=== PATIENT | male | born 1960 | race Caucasian/White ===

== ENCOUNTER → 2019-11-06 13:50 | Outpatient (CLI) | payer OTHER, SELFPAY ==
--- NOTE | 2019-11-06 13:51 | RAD_ITS ---
STUDY: X-RAY - PELVIS AND RIGHT HIP REASON FOR EXAM: Postoperative follow-up. TECHNIQUE: 2 views of the pelvis and hip. COMPARISON: Radiographs 08/23/2017. FINDINGS: There are small pelvic phleboliths. Normal bilateral iliac wings, sacroiliac joints and visualized sacrum. Normal bilateral superior and inferior pubic rami. There are degenerative changes of the pubic symphysis. Normal bilateral ischial tuberosities. There is a hip nail with femoral intramedullary trina transfixing a healed right intertrochanteric fracture. Normal hip joint. RAD/HIP, UNI W/ Pelvis 2-3 Views IMPRESSION: ORIF of healed intertrochanteric fracture without significant change. Electronically Signed: Basil Painting MD at 13:25 EST Tel , Service support ,
== END ==
PROVIDERS: Family Provider Internal Medicine; PCP Internal Medicine; Referring Provider Orthopaedic Surgery; Visit Provider Orthopaedic Surgery
DX: S72.141A Displaced intertrochanteric fracture of right femur, initial encounter for closed fracture (principal)
CPT/HCPCS: 73502

== ENCOUNTER → 2020-05-12 13:57 | Outpatient (CLI) | payer MEDICAID, SELFPAY ==
[2019-11-06 13:51] VITALS: BMI 28.1
--- NOTE | 2020-05-12 14:06 | US_ITS ---
STUDY: ABDOMINAL ULTRASOUND REASON FOR EXAM: Male, 60 years old. Generalized abdominal pain for one year. TECHNIQUE: Transabdominal ultrasound was performed with real-time and static conde scale imaging. TECHNICAL QUALITY: Examination limited by bowel gas. COMPARISON: None. FINDINGS: Liver: The liver measures 17.6 cm. There is increased echogenicity consistent with fatty infiltration. The bile ducts are within normal limits. There is hepatic color flow. The direction of portal flow is hepatopetal. There is no demonstrated mass lesion. Gallbladder: Normal distended gallbladder. The gallbladder wall measures 2.8 mm. There is a negative sonographic Sanchez''s sign. There is no pericholecystic fluid. There are no gallstones. Common Bile Duct (C.B.D.): The common bile duct measures 5.9 mm. Pancreas: There is nonvisualization of the pancreas. Spleen: There is borderline splenomegaly. The spleen measures 12.2 cm. Right Kidney: Normal size of the right kidney. The right kidney measures 12.1 cm. Normal renal cortex. The right cortex measures 1.9 cm. There is no demonstrated renal mass or cyst. There is no right hydronephrosis. Left Kidney: Normal size of the left kidney. The left kidney measures 12.4 cm. Normal renal cortex. The left cortex measures 1.5 cm. There is no demonstrated renal mass or cyst. There is no left hydronephrosis. Aorta: Proximal aorta is unremarkable. The mid and distal aorta are obscured by bowel gas. I.V.C.: The IVC is obscured. There is no ascites. US/Abdomen Complete IMPRESSION: 1. Limited visualization due to bowel gas. The greatest lower aorta are obscured. 2. Diffuse fatty infiltration of liver without mass. 3. Borderline splenomegaly. 4. Otherwise normal abdominal ultrasound. Electronically Signed: Matt Sharp DO at 21:22 EDT Tel [phone], Service support ,
== END ==
PROVIDERS: PCP Nurse Practitioner Family; Referring Provider Nurse Practitioner Family
DX: R10.84 Generalized abdominal pain (principal)
CPT/HCPCS: 76700

== ENCOUNTER 2020-06-09 08:45 | Day surgery (SDC) | payer MEDICAID, SELFPAY ==
[2020-05-22 12:49] VITALS: BMI 28.1
--- NOTE | 2020-05-22 12:49 | HP_ITS ---
Intake Vital Signs 05/22/20 BMI 28.1 05/22/20 Height 5 ft 10.5 in 05/22/20 Weight: 235 lb 05/22/20 BMI 33.2 05/22/20 BP 156/84 H 05/22/20 Blood Pressure Location Rt brachial 05/22/20 Position Sitting 05/22/20 Respiration 18 05/22/20 Pulse 65 05/22/20 Pulse Source Monitor 05/22/20 Temp 99.3 F H 05/22/20 Temp Source Temporal 05/22/20 Pulse Oximetry (%) 94 05/22/20 Oxygen Delivery Method room air Intake Visit Reasons: EGD & COLONOSCOPY Operator Catalyst Concentration Required: No Is patient in pain?: No Allergies iodine Allergy (Verified 05/22/20 12:51) Other Medications Aspirin [Aspirin, Baby] 81 mg PO DAILY@0800 tab.chew 02/21/17 [Rx] atorvastatin 10 mg tablet 10 mg PO DAILY 05/22/20 [History Confirmed 05/22/20] cholecalciferol (vitamin D3) 1,250 mcg (50,000 unit) tablet 1,250 mcg PO QWEEK 05/22/20 [History Confirmed 05/22/20] metformin 500 mg tablet 250 mg PO DAILY tab 05/22/20 [History Confirmed 05/22/20] omeprazole 40 mg capsule,delayed release 40 mg PO DAILY 05/22/20 [History Confirmed 05/22/20] PFSH Medical History Hx of bladder cancer (Acute) GERD (gastroesophageal reflux disease) (Acute) Debility (Acute) Paresthesia of right arm and leg (Acute) Blurred vision (Acute) Hip fracture (Acute) Nicotine use disorder (Chronic) Intertrochanteric fracture of right femur (Acute) S/P ORIF (open reduction internal fixation) fracture (Acute) Surgical History Hx of colonoscopy (Acute) Hx of surgical amputation of finger (Acute) History of repair of hip fracture (Acute) Family History Mother Arthritis Hypertension High cholesterol Father High cholesterol Hypertension Social History (Updated 05/22/20 @ 13:[address] Brenden Ramirez MD) Smoking Status: Current every day smoker alcohol intake: current alcohol intake frequency: a few times a week substance use type: marijuana caffeine: No (has recently stopped) what type of physical activity do you participate in: none HPI HPI Surgical H&P: Yes HPI: PHU MIGUEL, is a 60 M who presents to the office today for Endoscopy. Patient has been having episodes of dysphasia particularly when he eats steak for the first bite where it seems to get stuck. Takes a lot of liquid and a lot of coughing to get this to move down. In addition he suffers from reflux. He has never had an upper scope. Patient has been noticing rectal bleeding over the last month. His last colonoscopy was in 2014 and is reportedly negative. ROS General General: Yes weight change; no appetite, fatigue, colon cancer, breast cancer or weakness HEENT HEENT: No difficulty swallowing, eye injury, eye surgery, swollen glands or hoarseness Endo Endocrine: No thyroid disease, diabetes mellitus, thyroid cancer, Hair loss, heat intolerance or cold intolerance Skin Skin: No rash or changing moles Breast Breast: No left breast lump, right breast lump, nipple discharge, breast pain, abnormal mammogram, abnormal US or breast enlargement Musc Musculoskeletal: Yes back problems and arthritis; no rheumatoid arthritis, gout or joint pain Cardio Cardiovascular: No murmur, pacemaker, heart disease, atrial fibrillation, high blood pressure, heart attack, heart stent, palpitations, shortness of breat with exertion or chest pain Psych Psychiatric: No depression, anxiety or hearing voices Resp Respiratory: No shortness of breath, No sleep apnea, No cough, No COPD, No asthma, No emphysema, No wheezing Gastro Gastrointestinal: Yes abdominal pain, No nausea or vomiting, No diarrhea, No constipation, Yes blood in stool, Yes acid reflux, No hemorrhoids, No ulcers, No gallbladder problem, No black,tarry stools Josse Hematologic: No blood thinners, No blood disorders, No bleeding, No anemia, No blood clots Neuro Neurologic: No system reviewed and no additional complaints, except as docu, No as per HPI, No abnormal walking, No abnormal hearing, No abnormal movements, No abnormal speech, No behavioral changes, No burning sensations, No confusion, No seizure-like activity, No unsteadiness, No dizziness, No localized weakness, No frequent falls, No headache(s), No lack of coordination, No loss of vision, No memory loss, No numbness, No other visual disturbances, No radiating pain, No restless legs, No sensory deficit, No fainting, No tingling, No tremor(s), No weakness, No other Exam Const General: no acute distress, well developed, well hydrated Orientation: oriented to person, oriented to place, oriented to time [facility] Head: normocephalic, atraumatic Ears: external ears normal Mouth: moist mucous membranes Eyes Sclera: sclerae normal Pupils: normal by confrontation Neck Neck: no lymphadenopathy noted Neck mass: No Thyroid: thyroid normal, symmetrical Chest Chest palpation & inspection: normal inspection of the chest Breast Palpation: No nipple discharge Resp Effort & Inspection: normal respiratory effort Auscultation: clear to auscultation bilaterally Percussion: percussion normal Cardio Rate: regular rate Rhythm: regular rhythm Heart Sounds: no murmurs GI Palpation: soft, no hepatosplenomegaly, no masses, nontender Rectal Exam: other Other: Rectal exam deferred. Extrem General: normal to inspection, no clubbing, cyanosis or edema Assessment & Plan Problems 1. Esophageal dysphagia R13.10 2. Rectal hemorrhage K62.5 3. Gastroesophageal reflux disease, esophagitis presence not specified K21.9 Plan I have discussed the above with the patient. I have offered the patient colonoscopy As well as an EGD for evaluation. I have explained the risks/benefits of the procedure and described the procedure. I have discussed the risks with the patient, including but not limited to: infection, bleeding, perforation of the GI tract requiring emergency surgery, inability to complete the procedure, injury to any internal organs, complications of anesthesia, etc. - the patient understands and agrees to proceed. I have answered all the patient's questions to the patient's satisfaction and the patient has no further questions. The patient has been given instructions for the colon cleansing preparation. Orders Orders: Colonoscopy Today EGD Today Medications Discontinued: pantoprazole Discontinued Reason: Pt no longer taking 20 mg PO DAILY 30 tabs 0RF sennosides-docusate sodium 8.6-50 mg Discontinued Reason: Pt no longer taking 2 tabs PO DAILY 0RF Coding Level of Care Code Off vis,new,level 3 Diagnoses Esophageal dysphagia R13.10 ??Dysphagia type: esophageal phase Rectal hemorrhage K62.5 Gastroesophageal reflux disease, esophagitis presence not specified K21.9 ??Esophagitis presence: esophagitis presence not specified COVID (Procedure Consent) Procedure Criteria Procedure Criteria: Yes Elective The surgeon/proceduralist and patient have discussed in detail the risk of exposure to and/or potential harm posed by the COVID-19 virus with having a surgery/procedure at this time versus the risk of? delaying the surgery/procedure. It is not possible to know either the risk of delaying the surgery or procedure or chance of getting an infection with perfect accuracy, but a joint decision was made between the patient and the surgeon/proceduralist ?to proceed at this time with the scheduled surgery/procedure as indicated on the consent form. 05/22/20 1309 <Electronically signed by Brenden najera MD> Date _ Brenden Ramirez MD I have re-examined the patient. There are no clinical changes since date of exam.
[2020-06-09 09:09] VITALS: BP 145/86; PULSE 67; RESP 16; TEMP 36.8; O2SAT 96; BMI 34.1
[2020-06-09] MEDS: Lactated Ringers 1,000 ML 100 ML IV (09:22)
[2020-06-09 09:31] LABS: Bedside Glucose 187 mg/dL (70-110)
--- NOTE | 2020-06-09 09:45 | IMM_PTH ---
PATIENT: PHU MIGUEL LOC: EN U#:[id number] AGE/SX: 60/M ROOM: RE06/09/[address]: Dr. Brenden Ramirez MD : 1960 BED: DIS: 06/09/2020 SPEC #: [id number] RECD: 06/09/20 11:38 STATUS: GAYLA REQ #: [id number] CECILIA: 06/09/20 09:[address]: Brenden Ramirez DEPT: IMMUNOHISTOCHEMISTRY RECD BY: Millie Underwood ENTERED: 06/09/20 11:38 SP TYPE: IMMUNO OTHR DR: Tess Phillips, FUSION ANALYST-C [facility] Tissues: A - Stomach, NOS Procedures: H Pylori (initial) PHYSICIAN & INSTITUTION [place] [address] SPECIMEN INFORMATION: Tissue Source: A - Antrum biopsy Clinical Info: Esophageal dysphagia, GERD, rectal hemorrhage Specimen Number: [id number] CPT code: 85647 METHODOLOGY: Deparaffinized sections of prefer/formalin-fixed tissue or PAP/DQ stained slides are incubated with monoclonal/polyclonal antibodies/oligonucleotide probes. Localization is made via biotin free immunoperoxidase method. Appropriate controls are performed and reacted as expected. Results on target cell population are indicated in the following table: RESULTS: ANTIBODY / CLONE RESULT Block A H Pylori (polyclonal) negative These tests were developed and their performance characteristics determined by [facility]. They may not have been cleared or approved by the U.S. Food and Drug Administration. The FDA has determined that such clearance or approval is not necessary. INTERPRETATION: A. Antrum biopsy: Negative for Helicobacter pylori organisms. AM:lurdes 06/10/20
--- NOTE | 2020-06-09 09:45 | EGD_PTH ---
PATIENT: PHU MIGUEL LOC: EN U#:[id number] AGE/SX: 60/M ROOM: RE06/09/[address]: Dr. Brenden Ramirez MD : 1960 BED: DIS: 06/09/2020 SPEC #: [id number] RECD: 06/09/20 10:24 STATUS: GAYLA LESLY #: [id number] CECILIA: 06/09/20 09:[address]: Brenden Ramirez DEPT: SURGICAL PATHOLOGY RECD BY: Elie Barfield ENTERED: 06/09/20 11:04 SP TYPE: EGD BIOPSY OTHR DR: Tess Phillips, CLAIMS INVESTIGATOR-C [facility] Tissues: A - Gastric mucous membrane B - Ascending colon C - Transverse colon D - Sigmoid colon biopsy Procedures: Surgery Specimen Level IV HEADER OPERATION: Colonoscopy, EGD ([facility] [place]) PRE-OP DIAGNOSIS: Esophageal dysphagia, GERD, rectal hemorrhage TISSUE SUBMITTED: A - Antrum biopsy for H. pylori and path, B - Ascending colon polyp, C - Transverse colon polyp, D - Sigmoid colon polyp MICROSCOPIC DIAGNOSIS A. Gastric antrum, biopsy: Minimal chronic inflammation. See comment. B. Ascending colon polyp, biopsy: Hyperplastic polyp. C. Transverse colon polyp, biopsy: Polypoid fragment of benign colon tissue. See comment. D. Sigmoid colon polyp, biopsy: Tubular adenoma. AM:lurdes 06/10/20 COMMENT A. The results of immunohistochemistry for Helicobacter pylori will be reported separately ([id number]). C. Neither hyperplastic nor adenomatous change is identified. MICROSCOPIC DESCRIPTION Slides are reviewed. GROSS DESCRIPTION A - Received in fixative is one container labeled with the patient's name and designated antrum biopsy. The specimen consists of one irregular fragment of light hyde soft tissue that measures 0.4 x 0.3 x 0.1 cm. The specimen is totally submitted in one cassette. B - Received in fixative is one container labeled with the patient's name and designated ascending colon polyp biopsy. The specimen consists of two irregular fragments of light hyde soft tissue that in aggregate measure 0.4 x 0.2 x 0.1 cm. The specimen is totally submitted in one cassette. C - Received in fixative is one container labeled with the patient's name and designated transverse colon polyp. The specimen consists of multiple irregular fragments of light hyde soft tissue that in aggregate measure 0.5 x 0.5 x 0.1 cm. The specimen is totally submitted in one cassette. D - Received in fixative is one container labeled with the patient's name and designated sigmoid colon polyp. The specimen consists of a piece of hyde-pink polyp measuring 1 x 0.8 x 0.5 cm. The apparent base is inked. The specimen is bisected and submitted entirely in one cassette. Also present in the container are two fragments of hyde soft tissue measuring in aggregate 0.3 x 0.1 x 0.1 cm. The entire specimen is submitted in one cassette. / SJ:rg 06/09/20 TC:5 CPT: 74713 x4
--- NOTE | 2020-06-09 09:58 | OP.CCLET_ITS ---
06/09/2020 Ansley Galan [facility] Re : Upper GI endoscopy procedure for Anuj Linder [facility] This procedure was performed on Tuesday, June 09, 2020. My impressions and recommendations are as follows: Impressions : - Normal esophagus. - Erythematous mucosa in the prepyloric region of the stomach. Biopsied. - Normal examined duodenum. No specimens collected. Recommendations : - Discharge patient to home. - Resume previous diet. - Continue present medications. - Await pathology results. - Repeat upper endoscopy (date not yet determined) for surveillance. - Return to my office in 1 week. My findings are described in the full procedure note, which is enclosed. If I can be of further assistance, please feel free to contact me at Doctor phone number(s): , Fax: [phone], Work: . Sincerely, MD Brenden Nathan MD 06/09/2020 9:58:23 AM This report has been signed electronically.
--- NOTE | 2020-06-09 09:58 | OP.EGD_ITS ---
Patient Name: Anuj López Procedure Date: 06/09/2020 9:26 AM Date of : 1960 Age: 60 Procedure: Upper GI endoscopy Indications: Esophageal dysphagia, Gastro-esophageal reflux disease Providers: Brenden Ramirez MD Referring MD: Ansley Galan [facility] Medicines: See the Anesthesia note for documentation of the administered medications Patient Profile: This is a 60 year old male. Refer to note in patient chart for documentation of history and physical. Complications: No immediate complications. Procedure: Pre-Anesthesia Assessment: - Prior to the procedure, a History and Physical was performed, and patient medications and allergies were reviewed. The patient's tolerance of previous anesthesia was also reviewed. The risks and benefits of the procedure and the sedation options and risks were discussed with the patient. All questions were answered, and informed consent was obtained. Prior Anticoagulants: The patient has taken no previous anticoagulant or antiplatelet agents. ASA Grade Assessment: II - A patient with mild systemic disease. After reviewing the risks and benefits, the patient was deemed in satisfactory condition to undergo the procedure. After obtaining informed consent, the endoscope was passed under direct vision. Throughout the procedure, the patient's blood pressure, pulse, and oxygen saturations were monitored continuously. The gastroscope was introduced through the mouth, and advanced to the second part of duodenum. The upper GI endoscopy was accomplished without difficulty. The patient tolerated the procedure well. Scope In: 9:36:14 AM Scope Out: 9:38:35 AM Total Procedure Duration Time 0 hours 2 minutes 21 seconds Findings: The examined esophagus was normal. If the patient is still having symptoms of dysphasia we will need to get esophageal manometry studies. Localized mildly erythematous mucosa without bleeding was found in the prepyloric region of the stomach. Biopsies were taken with a cold forceps for Helicobacter pylori testing. The examined duodenum was normal. No biopsies or other specimens were collected for this exam. Impression: - Normal esophagus. - Erythematous mucosa in the prepyloric region of the stomach. Biopsied. - Normal examined duodenum. No specimens collected. Recommendation: - Discharge patient to home. - Resume previous diet. - Continue present medications. - Await pathology results. - Repeat upper endoscopy (date not yet determined) for surveillance. - Return to my office in 1 week. Procedure Code(s): --- Professional --- 99622, Esophagogastroduodenoscopy, flexible, transoral; with biopsy, single or multiple Diagnosis Code(s): --- Professional --- K31.89, Other diseases of stomach and duodenum R13.14, Dysphagia, pharyngoesophageal phase K21.9, Gastro-esophageal reflux disease without esophagitis CPT copyright 2017 [employer]. All rights reserved. The codes documented in this report are preliminary and upon furnace fitter review may be revised to meet current compliance requirements. MD Brenden Nathan MD 06/09/2020 9:58:23 AM This report has been signed electronically. Number of Addenda: 0 Note Initiated On: 06/09/2020 9:26 AM
[2020-06-09 10:00] VITALS: BP 145/95; BP 98/49; PULSE 63; RESP 16; TEMP 36.7; O2SAT 95
--- NOTE | 2020-06-09 10:01 | OP.COLON_ITS ---
Patient Name: Anuj López Procedure Date: 06/09/2020 9:39 AM Date of : 1960 Age: 60 Procedure: Colonoscopy Indications: Rectal bleeding Providers: Brenden Ramirez MD Referring MD: Ansley Galan [facility] Medicines: See the Anesthesia note for documentation of the administered medications Patient Profile: This is a 60 year old male. Refer to note in patient chart for documentation of history and physical. Last Colonoscopy: 2014. Complications: No immediate complications. Procedure: Pre-Anesthesia Assessment: - Prior to the procedure, a History and Physical was performed, and patient medications and allergies were reviewed. The patient's tolerance of previous anesthesia was also reviewed. The risks and benefits of the procedure and the sedation options and risks were discussed with the patient. All questions were answered, and informed consent was obtained. Prior Anticoagulants: The patient has taken no previous anticoagulant or antiplatelet agents. ASA Grade Assessment: II - A patient with mild systemic disease. After reviewing the risks and benefits, the patient was deemed in satisfactory condition to undergo the procedure. - Prior to the procedure, a History and Physical was performed, and patient medications and allergies were reviewed. The patient's tolerance of previous anesthesia was also reviewed. The risks and benefits of the procedure and the sedation options and risks were discussed with the patient. All questions were answered, and informed consent was obtained. Prior Anticoagulants: The patient has taken no previous anticoagulant or antiplatelet agents. ASA Grade Assessment: III - A patient with severe systemic disease. After reviewing the risks and benefits, the patient was deemed in satisfactory condition to undergo the procedure. After I obtained informed consent, the scope was passed under direct vision. Throughout the procedure, the patient's blood pressure, pulse, and oxygen saturations were monitored continuously. The colonoscope was introduced through the anus and advanced to the cecum, identified by appendiceal orifice and ileocecal valve. The colonoscopy was performed without difficulty. The patient tolerated the procedure well. The quality of the bowel preparation was adequate to identify polyps 6 mm and larger in size. Scope In: 9:40:18 AM Scope Withdrawal Time 0 hours 10 minutes 17 seconds Scope Out: 9:53:44 AM Total Procedure Duration Time 0 hours 13 minutes 26 seconds Findings: Four sessile polyps were found in the sigmoid colon, transverse colon and ascending colon. The polyps were 4 to 11 mm in size. These polyps were removed with a hot snare. Resection and retrieval were complete. Non-bleeding internal hemorrhoids were found during retroflexion. The hemorrhoids were mild and small. Impression: - Four 4 to 11 mm polyps in the sigmoid colon, in the transverse colon and in the ascending colon, removed with a hot snare. Resected and retrieved. - Non-bleeding internal hemorrhoids. Recommendation: - Repeat colonoscopy in 3 - 5 years for surveillance. - Return to my office in 1 week. - Continue present medications. Procedure Code(s): --- Professional --- 45443, Colonoscopy, flexible; with removal of tumor(s), polyp(s), or other lesion(s) by snare technique Diagnosis Code(s): --- Professional --- D12.5, Benign neoplasm of sigmoid colon D12.3, Benign neoplasm of transverse colon (hepatic flexure or splenic flexure) D12.2, Benign neoplasm of ascending colon K64.8, Other hemorrhoids K62.5, Hemorrhage of anus and rectum CPT copyright 2017 [employer]. All rights reserved. The codes documented in this report are preliminary and upon cash application clerk review may be revised to meet current compliance requirements. MD Brenden Nathan MD 06/09/2020 10:01:14 AM This report has been signed electronically. Number of Addenda: 0 Note Initiated On: 06/09/2020 9:39 AM
--- NOTE | 2020-06-09 10:02 | OP.CCLET_ITS ---
06/09/2020 Ansley Angelia [facility] Re : Colonoscopy procedure for Anuj Linder [facility] This procedure was performed on Tuesday, June 09, 2020. My impressions and recommendations are as follows: Impressions : - Four 4 to 11 mm polyps in the sigmoid colon, in the transverse colon and in the ascending colon, removed with a hot snare. Resected and retrieved. - Non-bleeding internal hemorrhoids. Recommendations : - Repeat colonoscopy in 3 - 5 years for surveillance. - Return to my office in 1 week. - Continue present medications. My findings are described in the full procedure note, which is enclosed. If I can be of further assistance, please feel free to contact me at Doctor phone number(s): , Fax: [phone], Work: . Sincerely, MD Brenden Nathan MD 06/09/2020 10:01:14 AM This report has been signed electronically.
[2020-06-09 10:05] VITALS: BP 145/95; BP 96/49; PULSE 60; RESP 16; O2SAT 92
[2020-06-09 10:10] VITALS: BP 102/50; BP 145/95; PULSE 60; RESP 16; O2SAT 92
[2020-06-09 10:13] VITALS: BP 106/63; BP 145/95; PULSE 59; RESP 16; TEMP 36.3; O2SAT 92
[2020-06-09 10:45] VITALS: BP 145/95
== END 2020-06-09 10:45 | disposition home or self-care (01) ==
LOC: EN 08:47 → AC 08:47
PROVIDERS: Anesthesiology; Visit Provider Surgery
PROC: 0DJD8ZZ Inspection of Lower Intestinal Tract, Via Natural or Artificial Opening Endoscopic (ICD-10-PCS; CPT 45378; principal; 2020-06-09 09:40)
DX: K29.50 Unspecified chronic gastritis without bleeding (principal); K21.9 Gastro-esophageal reflux disease without esophagitis; D12.5 Benign neoplasm of sigmoid colon; K63.5 Polyp of colon; K64.8 Other hemorrhoids; Z11.59 Encounter for screening for other viral diseases; G25.81 Restless legs syndrome; E78.00 Pure hypercholesterolemia, unspecified; Z86.2 Personal history of diseases of the blood and blood-forming organs and certain disorders involving the immune mechanism; Z87.19 Personal history of other diseases of the digestive system; Z85.51 Personal history of malignant neoplasm of bladder; Z86.73 Personal history of transient ischemic attack (TIA), and cerebral infarction without residual deficits; Z79.82 Long term (current) use of aspirin; Z79.84 Long term (current) use of oral hypoglycemic drugs; Z79.899 Other long term (current) drug therapy; Z87.891 Personal history of nicotine dependence
CPT/HCPCS: 43239; 45385; 82962; 87635; 88305; 88342; 94799; J7120; J1610; J2405; U0003

== ENCOUNTER → 2020-07-11 09:00 | Outpatient (CLI) | payer MEDICAID, SELFPAY ==
[2020-07-11 10:18] LABS: Absolute Lymphocyte Count 2.94 X10^3/uL (0.83-4.51); Absolute Neutrophil Count 3.3 X10^3/uL (2.0-7.7); Basophil# 0.03 X10^3/uL; Basophil% 0.4 % (0-1); Eosinophil# 0.19 X10^3/uL; Eosinophils% 2.7 % (0-5); Hematocrit 45.2 % (40-54); Hemoglobin 14.7 g/dL (13.0-16.5); Lymphocyte # 2.94 X10^3/ul (4.0); Lymphocyte % 42.2 % (19-41); Mean Corp Hgb Conc 32.5 g/dL (32-36); Mean Corpuscular Hgb 29.7 pg (27.0-32.0); Mean Corpuscular Volume 91.3 fL (80-94); Mean Platelet Vol. 11.8 fl (6.2-12.0); Monocyte# 0.53 X10^3/uL; Monocyte% 7.6 % (0-10); NRBC Flagged by Analyzer 0 % (0-5); Neutrophil # 3.26 X10^3/uL (2.7-7.7); Neutrophil % 46.8 % (47-70); Platelet Count 121 K/mm3 (150-450); RBC Distribution Width CV 11.9 % (11.6-14.6); RBC Distribution Width SD 39.7 fl (35.1-43.9); Red Blood Count 4.95 M/mm3 (4.6-6.2)
[2020-07-11 10:49] LABS: Hemoglobin A1c 8.7 % (3.8-5.6)
[2020-07-11 11:00] LABS: ALB/GLOB Ratio 0.9 RATIO (0.9-2.4); AST(SGOT) 105 U/L (15-37); Alanine Aminotransfer ALT/SGPT 128 U/L (16-61); Albumin, Serum 3.5 g/dL (3.2-5.0); Alkaline Phosphatase 139 U/L (45-117); Anion Gap 9 (5-15); BUN 13 mg/dL (7-18); BUN/Creat Ratio 11.1 RATIO (10-20); Calcium,Total 8.8 mg/dL (8.5-10.1); Chloride 103 mmol/L (98-107); Cholesterol 155 mg/dL (200); Creatinine, Serum 1.17 mg/dL (0.70-1.30); EST Glomerular Filtration Rate 68 mL/min (>60); Est Glom Filt Rate - Afr Amer 82 mL/min (>60); Globulin 4.1 g/dL (2.2-4.2); Glucose 180 mg/dL (74-106); High Density Lipoprotein 25 mg/dL; Potassium 3.8 mmol/L (3.5-5.1); Protein, Total 7.6 g/dL (6.4-8.2); Sodium Level 138 mmol/L (136-145); Triglycerides 389 mg/dL; Very Low Density Lipoprotein 78 mg/dL (5-40)
== END ==
PROVIDERS: Nurse Practitioner Family
DX: D69.6 Thrombocytopenia, unspecified (principal); E11.9 Type 2 diabetes mellitus without complications; E78.5 Hyperlipidemia, unspecified; R94.5 Abnormal results of liver function studies
CPT/HCPCS: 36415; 80053; 80061; 83036; 85025

== ENCOUNTER → 2020-11-25 08:28 | Outpatient (CLI) | payer MEDICAID, SELFPAY ==
[2020-07-29 11:20] VITALS: BMI 34.1
[2020-11-25 09:01] LABS: Absolute Lymphocyte Count 3.06 X10^3/uL (0.83-4.51); Absolute Neutrophil Count 2.9 X10^3/uL (2.0-7.7); Basophil# 0.04 X10^3/uL; Basophil% 0.6 % (0-1); Eosinophil# 0.15 X10^3/uL; Eosinophils% 2.2 % (0-5); Hematocrit 46.8 % (40-54); Hemoglobin 15.4 g/dL (13.0-16.5); Lymphocyte # 3.06 X10^3/ul (4.0); Lymphocyte % 45.8 % (19-41); Mean Corp Hgb Conc 32.9 g/dL (32-36); Mean Corpuscular Hgb 30.6 pg (27.0-32.0); Mean Platelet Vol. 11.5 fl (6.2-12.0); Monocyte# 0.52 X10^3/uL; Monocyte% 7.8 % (0-10); NRBC Flagged by Analyzer 0 % (0-5); Neutrophil # 2.87 X10^3/uL (2.7-7.7); Platelet Count 129 K/mm3 (150-450); RBC Distribution Width CV 12.5 % (11.6-14.6); RBC Distribution Width SD 42.5 fl (35.1-43.9); Red Blood Count 5.03 M/mm3 (4.6-6.2); White Blood Count 6.7 K/mm3 (4.4-11.0)
[2020-11-25 09:18] LABS: Hemoglobin A1c 9.3 % (3.8-5.6)
[2020-11-25 09:29] LABS: ALB/GLOB Ratio 0.7 RATIO (0.9-2.4); AST(SGOT) 66 U/L (15-37); Alanine Aminotransfer ALT/SGPT 93 U/L (16-61); Albumin, Serum 3.3 g/dL (3.2-5.0); Alkaline Phosphatase 138 U/L (45-117); Anion Gap 6 (5-15); BUN 16 mg/dL (7-18); BUN/Creat Ratio 13.8 RATIO (10-20); Calcium,Total 8.7 mg/dL (8.5-10.1); Chloride 103 mmol/L (98-107); Cholesterol 146 mg/dL (200); Creatinine, Serum 1.16 mg/dL (0.70-1.30); EST Glomerular Filtration Rate 69 mL/min (>60); Est Glom Filt Rate - Afr Amer 83 mL/min (>60); Globulin 4.5 g/dL (2.2-4.2); Glucose 209 mg/dL (74-106); High Density Lipoprotein 26 mg/dL; Potassium 3.9 mmol/L (3.5-5.1); Protein, Total 7.8 g/dL (6.4-8.2); Sodium Level 137 mmol/L (136-145); Triglycerides 412 mg/dL; Vitamin D,25 Hydroxy 51.9 ng/mL
== END ==
PROVIDERS: Referring Provider Family Medicine
DX: D69.6 Thrombocytopenia, unspecified (principal); E11.9 Type 2 diabetes mellitus without complications; E78.2 Mixed hyperlipidemia; E55.9 Vitamin D deficiency, unspecified; K21.9 Gastro-esophageal reflux disease without esophagitis
CPT/HCPCS: 36415; 80053; 80061; 82306; 83036; 85025

== ENCOUNTER → 2021-03-11 10:52 | Outpatient (CLI) | payer MEDICAID, SELFPAY ==
[2020-07-29 11:20] VITALS: BMI 34.1
[2021-03-11 11:20] LABS: Absolute Lymphocyte Count 2.46 X10^3/uL (0.83-4.51); Absolute Neutrophil Count 2.8 X10^3/uL (2.0-7.7); Basophil# 0.03 X10^3/uL; Basophil% 0.5 % (0-1); Eosinophil# 0.14 X10^3/uL; Eosinophils% 2.3 % (0-5); Hemoglobin 15.3 g/dL (13.0-16.5); Lymphocyte # 2.46 X10^3/ul (0.83-4.51); Lymphocyte % 41.3 % (19-41); Mean Corp Hgb Conc 33.3 g/dL (32-36); Mean Corpuscular Hgb 30.2 pg (27.0-32.0); Mean Corpuscular Volume 90.7 fL (80-94); Mean Platelet Vol. 11.8 fl (6.2-12.0); Monocyte# 0.47 X10^3/uL; Monocyte% 7.9 % (0-10); NRBC Flagged by Analyzer 0 % (0-5); Neutrophil # 2.84 X10^3/uL (2.7-7.7); Neutrophil % 47.7 % (47-70); Platelet Count 127 K/mm3 (150-450); RBC Distribution Width CV 12.1 % (11.6-14.6); RBC Distribution Width SD 39.8 fl (35.1-43.9); Red Blood Count 5.07 M/mm3 (4.6-6.2)
[2021-03-11 11:53] LABS: ALB/GLOB Ratio 0.7 RATIO (0.9-2.4); AST(SGOT) 56 U/L (15-37); Alanine Aminotransfer ALT/SGPT 74 U/L (16-61); Albumin, Serum 3.2 g/dL (3.2-5.0); Alkaline Phosphatase 179 U/L (45-117); Anion Gap 5 (5-15); BUN 10 mg/dL (7-18); Calcium,Total 8.7 mg/dL (8.5-10.1); Chloride 103 mmol/L (98-107); Cholesterol 193 mg/dL (200); EST Glomerular Filtration Rate 81 mL/min (>60); Est Glom Filt Rate - Afr Amer 98 mL/min (>60); Globulin 4.8 g/dL (2.2-4.2); Glucose 272 mg/dL (74-106); High Density Lipoprotein 21 mg/dL; Lipase 115 U/L (73-393); PSA,Total - Annual Screen 0.61 ng/mL (0.00-4.00); Potassium 3.8 mmol/L (3.5-5.1); Sodium Level 134 mmol/L (136-145); Thyroid Stim Hormone (TSH) 1.79 uIU/mL (0.358-3.74); Triglycerides 593 mg/dL
== END ==
PROVIDERS: Referring Provider Nurse Practitioner Adult Health; Visit Provider Nurse Practitioner Adult Health
DX: K92.1 Melena (principal); R10.84 Generalized abdominal pain; Z12.5 Encounter for screening for malignant neoplasm of prostate
CPT/HCPCS: 36415; 80053; 80061; 82274; 83690; 84153; 84443; 85025; G0103

== ENCOUNTER → 2021-03-20 10:25 | Outpatient (CLI) | payer MEDICAID, SELFPAY ==
[2020-07-29 11:20] VITALS: BMI 34.1
--- NOTE | 2021-03-20 10:28 | EKG12_ITS ---
Test Reason : CP,SOB Blood Pressure : / mmHG Vent. Rate : 068 BPM Atrial Rate : 068 BPM P-R Int : 128 ms QRS Dur : 090 ms QT Int : 416 ms P-R-T Axes : 014 021 039 degrees QTc Int : 442 ms Normal sinus rhythm Normal ECG Confirmed by GONZALO OTTO, JAYLENE ([id number]), advertising editor INO GROVER ([id number]) on 03/24/2021 10:09:31 A M Referred By: Faby Cain Confirmed By:JORDI SÁNCHEZ MD
== END ==
PROVIDERS: Referring Provider Nurse Practitioner Adult Health; Visit Provider Nurse Practitioner Adult Health
DX: R10.84 Generalized abdominal pain (principal); R06.02 Shortness of breath
CPT/HCPCS: 93005

== ENCOUNTER → 2021-03-24 10:03 | Outpatient (CLI) | payer MEDICAID, SELFPAY ==
[2020-07-29 11:20] VITALS: BMI 34.1
--- NOTE | 2021-03-24 10:20 | RAD_ITS ---
STUDY: X-RAY - ESOPHAGUS (BARIUM SWALLOW) WITH FLUOROSCOPY REASON FOR EXAM: Male, 60 years old. DYSPHAGIA TECHNIQUE: 13 view(s) of the esophagus were obtained following swallowing of barium. FLUOROSCOPY TIME (if supplied): (34 seconds) minutes/seconds COMPARISON: None. FINDINGS: There is no demonstrated esophageal foreign body. There is no demonstrated stricture or mucosal abnormality. Normal gastroesophageal junction, without a demonstrated hiatal hernia. The patient ingested a 12 mm tablet of barium. The tablet is trapped at the gastroesophageal junction. There is atherosclerotic calcification of the aortic arch with tortuosity of the descending aorta. Normal visualized pulmonary parenchyma. Normal visualized osseous structures of the thorax. RAD/Esophagus Dual Contrast IMPRESSION: The ingested 12 mm tablet of barium is trapped at the gastroesophageal junction. Electronically Signed: Viktor Khan MD at 12:19 EDT , Service support ,
== END ==
PROVIDERS: Referring Provider Nurse Practitioner Adult Health; Visit Provider Nurse Practitioner Adult Health
DX: R13.10 Dysphagia, unspecified (principal); R10.84 Generalized abdominal pain
CPT/HCPCS: 74221

== ENCOUNTER → 2021-04-01 09:06 | Outpatient (CLI) | payer MEDICAID, SELFPAY ==
[2020-07-29 11:20] VITALS: BMI 34.1
--- NOTE | 2021-04-01 09:09 | CT_ITS ---
STUDY: CT ABDOMEN AND PELVIS WITHOUT CONTRAST REASON FOR EXAM: Male, 60 years old. Epigastric pain. History of bladder cancer. RADIATION DOSAGE (If Supplied By Facility): CTDIvol = ( 18.80 ) mGy, DLP = ( 943.98 ) mGycm TECHNIQUE: Transaxial images were obtained from the dome of the diaphragm to the symphysis pubis without oral contrast, and without intravenous contrast. Sagittal and coronal images were reconstructed. Individualized dose optimization techniques were used for this CT. COMPARISON: None. FINDINGS: Mild degree of increased markings at the left lung base. This may represent either atelectasis and/or possibly early infiltrate. Minimal anterior pericardial thickening. There is decreased attenuation of the liver consistent with steatosis. Hepatomegaly. The gallbladder is contracted. Normal spleen. Normal pancreas. Normal bilateral adrenal glands. Normal right kidney. Normal left kidney. Normal visualized stomach. Normal small intestine. There are scattered colonic diverticula consistent with diverticulosis. The appendix is visualized and appears normal. There is scattered atherosclerotic calcification of the abdominal aorta, without a demonstrated aneurysm. Normal inferior vena cava. Normal retroperitoneum. Normal urinary bladder. There are small bilateral inguinal hernias containing fat. There are mild degenerative changes of the visualized lumbar spine. Status post open reduction and fixation of right intertrochanteric fracture. CT/Abdomen/Pelvis without Cont IMPRESSION: Mild increased markings at the left lung base suggestive of atelectasis and/or early infiltrate. Hepatomegaly and diffuse fatty infiltration of the liver. Small bilateral inguinal hernias containing fat. Electronically Signed: Viktor Khan MD at 13:41 EDT , Service support ,
--- NOTE | 2021-04-01 09:19 | ECHOCS_ITS ---
Reason For Study: Abdominal Pain, SOB Procedure This was a 2D Doppler, Color Flow transthoracic echocardiogram. The study was technically difficult. Contrast injection was performed. Exam performed in department. Left Ventricle Normal LV size. Left ventricular systolic function is normal. The estimated ejection fraction is 65 %. Transmitral doppler flow suggestive of impaired relaxation of left ventricle. No regional wall motion abnormalities noted. Right Ventricle Normal RV size. Normal systolic function. Atria Normal left atrium. Normal right atrium. No doppler evidence for ASD. Mitral Valve There is mild mitral annular calcification. Normal mitral valve. Trivial mitral valve insufficiency. Tricuspid Valve Normal tricuspid valve. Trivial tricuspid valve insufficiency. Right ventricular systolic pressure estimated to be 30 mmHg. Aortic Valve Trisinus/trileaflet aortic valve. Normal aortic valve. Pulmonic Valve The pulmonic valve is not well visualized. Great Vessels The aortic root is not well visualized. Pericardium/Pleural No pericardial effusion. Medication 22 gauge I.V. with prn adaptor inserted into right arm. Diluted definity 4ml given slow IV push to enhance endocardial definition. MMode/2D Measurements & Calculations LVIDd: 4.1 cm IVSd: 1.2 cm LA dimension: 4.1 cm LVIDs: 2.1 cm LVPWd: 1.1 cm FS: 47.6 % LAV(MOD-bp): 49.8 ml LA A4 area: 17.1 cm2 RA A4 area: 16.3 cm2 LAV(MOD-bp) Indexed: 23.2 ml/m2 LAV(MOD-sp2): 49.6 ml LAV(MOD-sp4): 46.9 ml Time Measurements MV dec time: 0.26 sec Doppler Measurements & Calculations MV E max donnell: 70.6 cm/sec Lat Peak E' Donnell: 7.9 cm/sec Med Peak E' Donnell: 7.4 cm/sec MV A max donnell: 74.0 cm/sec E/E' lat: 8.9 E/E' med: 9.5 MV E/A: 0.95 MV V2 max: 79.3 cm/sec MV P1/2t max donnell: 67.9 cm/sec Ao V2 max: 115.4 cm/sec MV max P.5 mmHg MV P1/2t: 80.6 msec Ao max P.3 mmHg MV V2 mean: 44.5 cm/sec MV dec slope: 246.9 cm/sec2 MV mean P.91 mmHg MV V2 VTI: 22.7 cm MVA(P1/2t): 2.7 cm2 LV V1 max: 106.4 cm/sec PA V2 max: 119.4 cm/sec TR max donnell: 260.6 cm/sec LV V1 max P.5 mmHg TR max P.2 mmHg ECHO/Echo Complete W/ Contrast Interpretation Summary The study was technically difficult. Contrast injection was performed. Left ventricular systolic function is normal. The estimated ejection fraction is 65 %. There is mild mitral annular calcification. Trivial mitral valve insufficiency. Trivial tricuspid valve insufficiency. Right ventricular systolic pressure estimated to be 30 mmHg. Transmitral doppler flow suggestive of impaired relaxation of left ventricle Ordering Physician: Faby Cain Referring Physician: Faby Cain Performed By: Cornelius Ochoa RCS
== END ==
PROVIDERS: Referring Provider Nurse Practitioner Adult Health; Visit Provider Nurse Practitioner Adult Health
DX: R10.84 Generalized abdominal pain (principal); R06.02 Shortness of breath
CPT/HCPCS: 74176; 93306; Q9957; A4216; C8929; J3490

== ENCOUNTER → 2021-04-13 08:10 | Outpatient (CLI) | payer MEDICAID, SELFPAY ==
[2020-07-29 11:20] VITALS: BMI 34.1
--- NOTE | 2021-04-13 13:19 | PFT ---
INTRODUCTION: The patient is a 61-year-old male that presents for pulmonary function studies secondary to a diagnosis of atelectasis. Respiratory therapy reports good patient effort. Bronchodilators were used during testing. INTERPRETATION: Forced expiration spirometry demonstrates the presence of a moderate large airways obstructive ventilatory defect. There was no significant response to aerosolized bronchodilators. Spirograms are of good quality but do not plateau indicating slow emptying of the lungs. Body plethysmography was performed and reveals lung volumes to be within normal limits. Diffusing capacity by single breath CO is at the lower limits of normal at 73% of predicted. IMPRESSION: Irreversible moderate large airways obstructive ventilatory defect with preserved lung volumes and mild reduction in diffusing capacity.
== END ==
PROVIDERS: Referring Provider Nurse Practitioner Adult Health; Visit Provider Nurse Practitioner Adult Health
DX: J98.11 Atelectasis (principal)
CPT/HCPCS: 94060; 94726; 94729

== ENCOUNTER → 2021-06-22 13:33 | Outpatient (CLI) | payer MEDICAID, SELFPAY ==
--- NOTE | 2021-06-22 13:45 | RAD_ITS ---
STUDY: X-RAY CHEST REASON FOR EXAM: Male, 61 years old. SOB TECHNIQUE: PA and lateral views of the chest. COMPARISON: 02/09/2017. FINDINGS: There is mild bilateral basilar atelectasis. Otherwise the lungs are clear and expanded. There is no demonstrated pleural abnormality. Normal size heart. Normal mediastinum and yamilet. Normal visualized pulmonary arteries. Normal visualized aortic arch and descending thoracic aorta. There are mild degenerative changes of the visualized thoracic spine. There is degenerative osteoarthritis of the bilateral shoulders. There is no demonstrated abnormality of the visualized soft tissue structures of the upper abdomen. RAD/Chest PA and Lateral IMPRESSION: Mild bilateral basilar atelectasis, otherwise no acute cardiopulmonary disease. Electronically Signed: Philly Sandoval MD at 2:27 EDT , Service support ,
== END ==
PROVIDERS: PCP Nurse Practitioner Adult Health; Referring Provider Nurse Practitioner Adult Health; Visit Provider Nurse Practitioner Adult Health
DX: R06.02 Shortness of breath (principal)
CPT/HCPCS: 71046

== ENCOUNTER → 2021-06-29 17:39 | Outpatient (CLI) | payer MEDICAID, SELFPAY ==
--- NOTE | 2021-06-29 18:04 | MRI_ITS ---
STUDY: MRI ABDOMEN WITH AND WITHOUT CONTRAST REASON FOR EXAM: Male, 61 years old. BENIGN NEOPLASM OF RIGHT KIDNEY TECHNIQUE: Standardized fat and water weighted pulse sequences were obtained in all 3 orthogonal planes post contrast administration. IV 22ml Dotarem was administered for the contrast portion of the examination. COMPARISON: CT scan abdomen and pelvis obtained on 04/01/2021. FINDINGS: The visualized lung bases are unremarkable. The visualized portions of the heart are within normal limits. No evidence of hepatic masses, no evidence of intrahepatic biliary dilatation is seen. The gallbladder is contracted. No evidence of extrahepatic biliary dilatation is seen. The spleen is enlarged in size, T2 prolongation visualized underlying the capsule of the spleen suggestive of subcapsular hematoma would recommend clinical correlation this was not seen on the prior study. Linear areas of T2 punctation visualized within the splenic parenchyma. Normal pancreas. Normal bilateral adrenal glands. There is a simple cortical cyst visualized in the upper pole of the right kidney measuring 1.9 x 1.8 x 1.4 cm, a blood vessel is visualized crossing along the base of the cyst that would explain the areas of increased attenuation are visualized on the prior CT scan. No evidence of other renal lesion seen in the right kidney. No evidence of left kidney lesions. No evidence of hydronephrosis or hydroureter is seen. No evidence of renal stones. Distended stomach. Unremarkable visualized small and large bowel loops. Normal abdominal aorta. Normal inferior vena cava. Normal retroperitoneum. Normal abdominal wall. Normal osseous structures. MRI/MRI Abd WITH and W/O Contrast IMPRESSION: Simple cyst visualized in the upper pole of the right kidney. Enlarged spleen with suggestion of subcapsular hematoma. Electronically Signed: Terence Stephenson MD at 10:20 EDT Tel , Service support ,
== END ==
PROVIDERS: PCP Nurse Practitioner Adult Health; Referring Provider Nurse Practitioner Adult Health; Visit Provider Nurse Practitioner Adult Health
DX: D30.01 Benign neoplasm of right kidney (principal)
CPT/HCPCS: 74183; A9575

== ENCOUNTER → 2021-07-29 20:00 | Outpatient (CLI) | payer MEDICAID, SELFPAY ==
[2021-05-13 07:37] VITALS: BMI 33.3
== END ==
PROVIDERS: PCP Nurse Practitioner Adult Health; Visit Provider Nurse Practitioner Adult Health
DX: G47.00 Insomnia, unspecified (principal); G47.10 Hypersomnia, unspecified
CPT/HCPCS: 95810

== ENCOUNTER 2021-09-23 12:22 | Emergency (ER) | payer OTHER, MEDICAID, SELFPAY ==
[2021-09-23 12:22] VITALS: BP 181/94; PULSE 81; RESP 16; TEMP 36.4; O2SAT 98; BMI 33.0
--- NOTE | 2021-09-23 13:16 | EX.ED.UPPERE ---
HPI History of Present Illness Chief Complaint: Laceration Detail of Chief Complaint: Laceration left index finger Informant: patient Narrative Narrative: Patient presents to the emergency department complaint of a laceration to his left index finger that occurred while at work today. Patient states that he stood up and accidentally brushed his index finger against a metal sheet which lacerated his finger. Patient went to urgent care initially and was referred to the emergency department for concern about arterial bleeding. Patient is right-hand dominant. Patient had a tetanus shot earlier this year. [facility] Medical History Blurred vision Debility Diabetes type 2, controlled Dysphagia Esophageal stricture ETOH abuse GERD (gastroesophageal reflux disease) Hip fracture History of TIA (transient ischemic attack) (2016) Hx of bladder cancer Hyperlipidemia Intertrochanteric fracture of right femur Marijuana use Nicotine use disorder Obesity Other bursitis of hip, right hip Paresthesia of right arm and leg Home Medications aspirin 81 mg PO DAILY@0800 tab.chew 02/21/17 [Rx Last Taken Unknown] atorvastatin 10 mg tablet 10 mg PO DAILY 05/22/20 [History Last Taken Unknown] metformin 500 mg tablet 250 mg PO DAILY tab 05/22/20 [History Last Taken Unknown] omeprazole 40 mg capsule,delayed release 40 mg PO DAILY 05/22/20 [History Last Taken Unknown] insulin glargine 100 unit/mL (3 mL) subcutaneous pen 35 unit SUBCUT QHS ml 04/17/21 [History Last Taken Unknown] lisinopril 10 mg tablet 10 mg PO DAILY #90 tab 05/13/21 [Rx Last Taken Unknown] cephalexin 500 mg PO Q6 #40 capsule 09/23/21 [Rx Last Taken Unknown] Allergy/AdvReac Type Severity Reaction Status Date / Time iodine Allergy Other Verified 05/13/21 07:37 Family History Mother Arthritis Hypertension High cholesterol Father High cholesterol Hypertension Surgical History History of open reduction and internal fixation (ORIF) procedure History of repair of hip fracture Hx of colonoscopy Hx of surgical amputation of finger Social History Smoking Status: Former smoker alcohol intake: current alcohol intake frequency: a few times a week substance use type: marijuana caffeine: No (has recently stopped) what type of physical activity do you participate in: none ROS ROS ED Constitutional Constitutional ED: Reports systems reviewed and no addt'l complaints, except as documented; Denies body ache(s), change in weight or chills Eyes Eyes: Denies acute decrease in peripheral vision, change in vision, double vision or loss of vision ENT ENT ED: Reports none; Denies ear pain, lip swelling, loss taste/smell, neck pain, otalgia or sore throat Cardiovascular Cardiovascular: Reports none; Denies abdominal pain, chest pain with activity, leg edema, lightheadedness, palpitations, rapid heart rate or syncope Respiratory/Chest Respiratory/Chest: Reports none; Denies change in mental status, dry cough, dyspnea, hemoptysis, shortness of breath at rest or shortness of breath with exertion Gastrointestinal Gastrointestinal: Reports none; Denies abdominal pain, change in stool character, diarrhea, hematemesis, hematochezia, melena, rectal bleeding or vomiting Genitourinary Genitourinary ED: Reports none; Denies abdominal discomfort, anuria, dysuria, genital pain or polyuria Musculoskeletal Musculoskeletal: Reports none and other Details: Laceration left index finger ; Denies arthralgias, back pain, difficulty walking, extremity pain, muscle weakness or myalgias Integumentary Reports none; Denies abscess or rash Neurologic Neurologic: Reports none; Denies abnormal gait, confusion, focal weakness, frequent falls, headache(s), loss of vision, numbness, paresthesias, radicular pain, vertigo or weakness Psychiatric Psychiatric: Reports systems reviewed and no addt'l complaints, except as documented and none; Denies behavioral changes, confusion, difficulty concentrating, hallucinations, suicidal ideation, tactile hallucinations or visual hallucinations Endocrine Endocrinology: Denies none, cold intolerance, excessive sweating, fatigue or heat intolerance Hematologic/Lymphatic Hematologic/Lymphatic: Reports none; Denies anemia, easy bleeding or easy bruising Allergic/Immunologic Allergic/Immunologic ED: Denies as per HPI, none, lip swelling, mouth swelling, throat swelling, tongue swelling or hives EXAM Physical Exam Const Vital Signs: 09/23/21 12:22 Temperature 97.6 F L Temperature Source Temporal Pulse Rate 81 Respiratory Rate 16 Blood Pressure 181/94 H Blood Pressure Mean 123 Pulse Ox 98 Oxygen Delivery Method Room Air Positive well nourished and well developed General Appearance ED: well developed and NAD HEENT Reports TM's clear and moist mucous membranes normocephalic and atraumatic; Negative for trauma or tenderness Tympanic Membrane ED: Yes TM's clear Eyes PERRL and EOMs intact bilaterally General Eye ED: Negative for pale conjunctiva or scleral icterus Neck no lymphadenopathy, supple and no JVD General: Negative for tenderness Chest Wall inspection of chest normal and palpation of chest normal Chest: Negative for tenderness Resp normal respiratory effort and clear to auscultation bilaterally Effort and Inspection: Negative for respiratory distress or pain with movement Auscultation: Negative for rhonchi, wheezes or diminished lung sounds Cardio regular rate, regular rhythm, S1 normal heart sound, S2 normal heart sound and no murmurs Peripheral Pulses: pulses 2+ throughout GI normal to inspection, nondistended, normoactive bowel sounds, soft to palpation, non-tender, non-distended and no masses Back/Spine no CVA tenderness and no thoracic nor lumbar tenderness Extremity Extremity Narrative: Evaluation of the left index finger reveals a large flap-like laceration measuring approximately 7 cm in length. The laceration starts at the dorsum of the second MCP joint and traverses distally towards the PIP joint. Patient has normal flexion extension at the MCP joint as well as the PIP and DIP joints. He is neurovascularly intact distally. There is a scalloping deformity needle and laceration of the extensor tendon noted however he has normal tendon function. There is large amount of venous oozing noted but no arterial bleeding noted. The laceration does not traverse across the area of the digital arteries. General Extremety ED: Negative for edema General Extremity: Negative for edema Neuro oriented x3, CN's II-XII intact bilaterally, no sensory deficits noted and gait normal Sensorium / Orientation: awake, alert, oriented to person, oriented to place and oriented to time Motor Exam: strength 5/5 throughout and strength abnormal Psych mental status grossly normal Skin no rashes or lesions noted and no wounds MDM MDM MDM Narrative Medical decision making narrative: Patient had laceration repair of his left index finger. I discussed case with orthopedic surgeon on-call Dr. Maddox who would be happy to follow-up patient in the office. He agreed with repair and plan. Patient will be started on Keflex. Patient had a clean dressing applied to the wound. Procedures Lacerations Left index finger laceration: Length: 2.76 in Depth: Sub Q Shape: Flap Prep: Sterile Conditions and Shure-Clens Laceration repair: Irrigated and Lidocaine Irrigated (ml): 200 Number of Sutures/[place]: 15 Suture Information: Ethilon and Simple Discharge Plan Triage Chief Complaint: Laceration ED Provider: Joanne Alcantar Dx/Rx/DC Orders Clinical Impression: Laceration of finger, index, Extensor tendon laceration, finger, open wound Instructions: ED Laceration: All Closures, ED Tendon Laceration Prescriptions: New cephalexin [cephalexin] 500 MG capsule 500 mg PO Q6 Qty: 40 RF: 0 No Action atorvastatin 10 mg tablet 10 mg PO DAILY RF: 0 metformin 500 mg tablet 250 mg PO DAILY RF: 0 omeprazole 40 mg capsule,delayed release(DR/EC) 40 mg PO DAILY RF: 0 lisinopril 10 mg tablet 10 mg PO DAILY Qty: 90 RF: 3 Lantus Solostar U-100 Insulin 100 unit/mL (3 mL) insulin pen 35 unit subcut QHS RF: 0 aspirin 81 MG tablet,chewable 81 mg PO DAILY@0800 RF: 0 Primary Care Provider: Faby Cain Referrals: Vinh Maddox DO [STAFF PHYSICIAN] - 10 Day for suture removal Faby Cain, ASSESSMENT NURSE PRACTITIONER-C [Primary Care Provider] - Disposition Disposition: Home, Self Care
[2021-09-23] MEDS: Cephalexin 250 MG Capsule 500 MG PO (13:58)
[2021-09-23 14:06] VITALS: PULSE 86; RESP 18; O2SAT 99
== END 2021-09-23 14:07 | disposition home or self-care (01) ==
LOC: ED 13:28
PROVIDERS: Emergency Provider Emergency Medicine; PCP Nurse Practitioner Adult Health
DX: S66.321A Laceration of extensor muscle, fascia and tendon of left index finger at wrist and hand level, initial encounter (principal); S61.211A Laceration without foreign body of left index finger without damage to nail, initial encounter; W26.8XXA Contact with other sharp object(s), not elsewhere classified, initial encounter; Y93.9 Activity, unspecified; Y92.9 Unspecified place or not applicable; E66.9 Obesity, unspecified; Z68.33 Body mass index [BMI] 33.0-33.9, adult; E11.9 Type 2 diabetes mellitus without complications; E78.5 Hyperlipidemia, unspecified; K21.9 Gastro-esophageal reflux disease without esophagitis; Z86.73 Personal history of transient ischemic attack (TIA), and cerebral infarction without residual deficits; Z85.51 Personal history of malignant neoplasm of bladder; Z79.4 Long term (current) use of insulin; Z79.82 Long term (current) use of aspirin; Z79.899 Other long term (current) drug therapy; Z87.891 Personal history of nicotine dependence
CPT/HCPCS: 12002; 99284

== ENCOUNTER 2021-11-02 16:30 | Outpatient (RCR) | payer OTHER, MEDICAID, SELFPAY ==
--- NOTE | 2021-10-26 13:08 | HP.OTEVAL_ITS ---
Patient's Visit Information PHU MIGUEL is a 61 year old M, referred to Occupational Therapy by Dr. Vinh Maddox DO, with a diagnosis of S66.121A Laceration flexor tendon L ind. finger. 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, 2021; pt reports that the surgeon stated that he just barely caught the tendon - surgeon had wanted to do surgery to repair but pt declined at the time; Pt had visit with surgeon this date who released him to go back to work; - Pain L index finger 2 - Objective Pt has U shaped scar proximal PIP joint to MCP joint of L index finger; - ROM MP: Lt D2 : - - pain when initiating extension PIP: Lt D2 : 74 DIP: Lt D2: 54 ROM Comments: Pain increased to 3/10 when trying to stretch towards end range of motion for flex/ext - Strength Mortgage Branch Manager: R 59# ; L 32# Tripod Pinch: R 17 L 9# Tip-to-Tip Pinch: R 14 L 6# with increased pain - Sensation Sensation Comments: constant numbness at MCP region of L D2 - Nine Hole Peg Right: 23.16 Left: 34.86 - Quick DASH-Disab of Arm,Shoulder& Hand Quick DASH Score: 20.4525 - Goals Goal:Daily scar massage when approriate: Yes Goal:ROM equal to unaffected hand: Yes Goal:Mortgage Branch Manager/Pinch strength at least 75% of unaffected hand: Yes Goal:No pain with affected hand use: Yes Goal:Full use of affected hand in daily activities including: Yes - Rehabilitation General Assessment: 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 therapy services to maximize function; Rehabilitation Potential: Good - Anticipated Interventions A/AAROM/PROM, Strengthening, Scar Care, Desensitization, Modalities, Fine Motor Coord/[place], Home Program - Visit Plan Frequency: 2-3x /Week Duration: 6 Weeks General Plan: Pt is demonstrating difficulty w/ strength, mobility, pain and scar management performing below prior level of function; pt would benefit from therapy services 2-3x/week for 4-6 weeks to maximize function as patient resumes daily activities including work. TEXT: Thank you for the opportunity to evaluate your patient. For Medicare and Medicare HMO plans, please review the plan of care and approve it. It will need to be FAXED BACK to us at [phone] for Medicare purposes. Please let me know if there are questions or concerns regarding this plan of care. Physician Signature: Date:
== END 2021-11-02 19:00 | disposition home or self-care (01) ==
LOC: OT 16:30
PROVIDERS: PCP Nurse Practitioner Adult Health; Referring Provider Student in an Organized Health Care Education/Training Program; Visit Provider Student in an Organized Health Care Education/Training Program
DX: S66.121D Laceration of flexor muscle, fascia and tendon of left index finger at wrist and hand level, subsequent encounter (principal); X58.XXXD Exposure to other specified factors, subsequent encounter
CPT/HCPCS: 97110; 97140; 97165; 97530

== ENCOUNTER 2022-01-05 16:26 | Outpatient (CLI) | payer MEDICAID, SELFPAY | END 2022-01-05 23:59 | disposition home or self-care (01) | LOC: LABSPEC 16:29 | PROVIDERS: PCP Nurse Practitioner Adult Health; Visit Provider Otolaryngology | DX: Z03.818 Encounter for observation for suspected exposure to other biological agents ruled out (principal); Z11.59 Encounter for screening for other viral diseases | CPT/HCPCS: 87635; U0003; U0005 ==